=== PATIENT | male | born 1955 | race Caucasian/White ===

== ENCOUNTER 2017-04-01 21:16 | Inpatient (IN) | payer MEDICARE ==
--- OUTSIDE RECORDS SUMMARY | 2017-04-01 21:31 | XMS | Clinical Summary ---
:1955 Author Organization [facility] Address [address] [place] [address] Phone Care Team Providers Name Role Phone , Primary Care Provider Unavailable Allergies Not on File Current Medications Not on file Active Problems Not on file Social History Tobacco Use Types Packs/Day Years Used Date Never Assessed Sex Assigned at Date Recorded Not on file Last Filed Vital Signs Not on file Plan of Treatment Not on file Results Not on filefrom Last 3 Months
--- NOTE | 2017-04-01 23:21 | PDOC.EVN ---
Event Note - Event Note Event Note: [id number] 1. Abdominal pain + r/o adhesisons 2. H/O BPH 3. H/O HTN 4. Leukocytosis plan: see orders
[2017-04-01] MEDS ORDERED: Ondansetron HCl/PF 4 MG/2 ML Vial IVP PRN (23:51)
[2017-04-01] MEDS ORDERED: HYDROcodone/Acetaminophen 5/325 mg Tablet PO PRN (23:51)
[2017-04-01] MEDS ORDERED: Acetaminophen 325 MG TAB PO PRN (23:51)
[2017-04-01] MEDS ORDERED: Cyclobenzaprine 10 MG TAB PO PRN (23:56)
[2017-04-01] MEDS ORDERED: PROVENTIL INHALER 6.7 G (200 INHALATIONS) INH PRN (23:56)
[2017-04-02] MEDS: HYDROcodone/Acetaminophen 10/325 mg Tablet PO PRN ×4 (01:49→22:47)
[2017-04-02] MEDS: Sodium Chloride 0.9% 1,000 ML IV SCH ×3 (01:50→22:50)
--- NOTE | 2017-04-02 07:39 | HP ---
DATE OF ADMISSION: 04/01/2017 CHIEF COMPLAINT: Abdominal pain. HISTORY OF PRESENT ILLNESS: Patient is a 61-year-old male with past medical history of hypertension, neurofibrosarcoma, coronary artery disease, cardiomyopathy, COPD, chronic smoking, now came to the ER, complaining of abdominal pain. Abdominal pain started 3 to 5 days back, left side abdomen, constant pain on 03/15. Denies any nausea, denies any vomiting, pain improves with pain medication. Denies any fever, denies any chills, denies any cough, denies any sputum production. Patient initially went to outside ER and patient was transferred here. Patient denies any chest pain, denies any trouble breathing. PAST MEDICAL HISTORY: Hydrocele surgery, ileostomy, status post recent history of perforated appendix with IR drainage and appendectomy. ALLERGIES: No known drug allergies. MEDICATIONS: Reviewed. FAMILY HISTORY: Denies any heart problems. SOCIAL HISTORY: Positive for smoking, denies alcohol, denies any drugs. REVIEW OF SYSTEMS: Constitutional: Denies any fever, denies any chills. Eyes : Denies any vision problems. Ears: Denies any hearing loss Neck: Denies any neck pain. Cardiovascular system: Denies any chest pain: Respiratory system: Denies any cough, denies any sputum production. Gastrointestinal: Positive for abdominal pain. Genitourinary: Denies dysuria. Integumentary: Denies any rash. Musculoskeletal: Denies any joint deformities. All other systems are reviewed and are negative. PHYSICAL EXAMINATION: CONSTITUTIONAL/VITAL SIGNS: At the time of H\T\P performed, blood pressure is 136/77, pulse ox 97%, heart rate 91. GENERAL APPEARANCE: The patient appears tired. HEENT: Anterior nares patent. Nose normal. Ears normal. Teeth intact. Tongue is moist. NECK: Supple. No JVD. GASTROINTESTINAL: Old healed scar present. Right-sided abdominal ileostomy present. CRANIAL NERVE SYSTEM: Awake, follows commands. Strength intact, sensory intact. PSYCHIATRIC: Mood is appropriate at this time. MUSCULOSKELETAL: No edema. LABORATORY DATA: At the time of H\T\P performed white count 7.5, hemoglobin 9.7 , platelet count is 473. BMP showed sodium 136, potassium 4.4, chloride 103, CO2 of 22, BUN 16, creatinine 1.1. UA positive for specific gravity of 1.020, protein 30. CT abdomen and pelvis positive for no renal hydronephrosis. Postoperative changes seen, ASSESSMENT AND PLAN: The patient is a 61-year-old male: 1. Abdominal pain plus possible postoperative adhesions. Plan to consult General Surgery to evaluate the patient. Plan to keep patient n.p.o. Plan to start the patient on IV fluids and p.r.n. pain medications. We will monitor patient closely. 2. History of hypertension. Monitor blood pressure. Continue blood pressure meds. 3. History of benign prostatic hypertrophy. Continue Flomax. 4. Pain. P.r.n. pain medications. Case was discussed in detail with the patient. RODRIGO
[2017-04-02] MEDS: Carvedilol 6.25 MG TAB PO SCH ×2 (08:48→16:57)
[2017-04-02] MEDS: Famotidine/PF 20 mg/2ml Vial SLOW IVP SCH ×2 (08:48→22:50)
[2017-04-02] MEDS ORDERED: Enoxaparin Sodium 40 MG/0.4 ML SYRINGE SC SCH (09:00)
[2017-04-02] MEDS: Famotidine 20 MG TAB PO SCH ×2 (10:06→22:50)
--- NOTE | 2017-04-02 10:11 | PDOC.PN ---
- Subjective Encounter Start Date: 04/02/17 Encounter Start Time: 12:45 -: old records requested/rev Pt seen and exmained, chart reviewed in its entirety. Pt admitted late last night for ongoing abdominal pain. History of admit early 01/2017 for abd pain, found to have appendicitis and ureteral obstruction form the mass effect of the inflammation. eventually went to surgery and ultimately discharged mid 02/2017. continued with some pain. Now worse for last 5 days. admitted for pain control, surgery eval. CT A/P without conrast revealed post op changes, chronic ileostomy, and probable adhesions with binding of bowel without obvious dilation. Admitted to us, awaiting surgical consultation james Cabezas continues to have pain, po meds seem to work fine. Afebrile no N/V, no D/C, NPO at present, no CP or SOB 10 point ROS performed and neg for all systems except as above - Objective Resuscitation Status: full MAR Reviewed: Yes Vital Signs & Weight: Vital Signs (12 hours) Temp Pulse Resp BP BP Pulse Ox 04/02/17 08:48 126/74 04/02/17 08:00 97.9 F 81 16 04/02/17 07:26 97.9 F 81 16 177/80 H 99 04/01/17 23:56 97.8 F 81 16 126/74 96 04/01/17 23:51 98 Weight Weight 160 lb 14.999 oz Result Diagrams: 04/02/17 11:31 04/02/17 11:27 Radiology Reviewed by me: Yes EKG Reviewed by me: Yes Phys Exam - Physical Examination Constitutional: NAD HEENT: PERRLA, moist MMs, sclera anicteric, oral pharynx no lesions Neck: no nodes, no JVD, supple, full ROM Respiratory: no wheezing, no rales, no rhonchi, clear to auscultation bilateral Cardiovascular: RRR, no significant murmur, no rub Gastrointestinal: positive bowel sounds diffusely tender, increased to LUQ/LLQ, no rebound, not rigid Musculoskeletal: no edema, pulses present Neurological: non-focal, normal sensation, moves all 4 limbs Lymphatic: no nodes Psychiatric: normal affect, A&O x 3 Skin: no rash, normal turgor, cap refill <2 seconds Dx/Plan (1) Abdominal pain Code(s): R10.9 - UNSPECIFIED ABDOMINAL PAIN Status: Acute Qualifiers: Abdominal location: left upper quadrant Qualified Code(s): R10.12 - Left upper quadrant pain Comment: follow up on surgical evaluation: they doubt SBO due ot lack of n/v, passing gas, delayed but present contrast in the colon. No free air. Pt with urinary issues, think it may be related to bladder distention, monitoring UOP and PVR. Flomax and diet restarted by surgery, will monitor. WBC ordered for AM (2) BPH (benign prostatic hyperplasia) Code(s): N40.0 - BENIGN PROSTATIC HYPERPLASIA WITHOUT LOWER URINRY TRACT SYMP Status: Chronic Qualifiers: Lower urinary tract symptom presence: symptoms present Lower urinary tract symptom detail: unspecified Qualified Code(s): N40.1 - Benign prostatic hyperplasia with lower urinary tract symptoms Comment: FLomax restarted, if PVR still elevated (Pt voided 300, bladder scan read 289 left), may need to add finasteride or avodart - Plan cont current plan of care, continue antibiotics, DVT proph w/heparin * .
[2017-04-02] MEDS: Heparin 5,000 UNITS/ML VIAL SC SCH ×3 (10:45→22:49)
[2017-04-02 11:51] LABS: Anion Gap 15 mmol/L (10-20); BUN (Urea Nitrogen) 19 mg/dL (8.4-25.7); Calc. Creatinine Clearance 98 mL/min (70-130); Carbon Dioxide 20 mmol/L (23-31); Chloride 104 mmol/L (98-107); Estimated GFR-MDRD Greater than 90
[2017-04-02 12:04] LABS: Band 8 % (5-11); Hematocrit 32.6 % (42.0-52.0); Mean Platelet Volume 5.9 fL (7.4-10.4); Neutrophil 87 % (42-75); Red Blood Cell (RBC) Count 3.59 mill/uL (4.70-6.10); White Blood Cell (WBC) Count 18.3 thou/uL (4.8-10.8)
--- NOTE | 2017-04-02 12:11 | CON ---
DATE OF CONSULTATION: 04/02/2017 The patient is well known to the trauma service, specifically, Dr. Sandra from his previous multiple abdominal operations from previous visits. Of note, the patient was doing well home healing lower midline wound almost completely healed, start ed to have more left lower quadrant, left flank pain not associated with dysuria, no change in bowel s. No nausea, vomiting, tolerating regular food. He does note incontinence of urine, where he feel s like he has to pee and cannot pee, but than he has some leakage. At times, he will have what he f eels like are normal voids, states that his ostomy output has been fairly stable. The pain is descr ibed as sharp, left lower quadrant radiating to left flank and across the lower abdomen. It has imp roved from admission. PAST MEDICAL HISTORY: Includes negative except for previous pelvic sarcoma and multiple operations. PAST SURGICAL HISTORY: As above. ALLERGIES: No known drug allergies. MEDICINES: See list. SOCIAL HISTORY: He smokes. No alcohol or other drugs. REVIEW OF SYSTEMS: Otherwise, negative. PHYSICAL EXAMINATION: VITAL SIGNS: Blood pressure is 126/74, pulse 81, temperature 97.9, respirations are normal. CHEST: Clear. HEART: Regular rate and rhythm. ABDOMEN: Soft, minimally tender in the left lower quadrant. No guarding or rebound. No right-side d abdominal tenderness. His ostomy is intact in the right lower quadrant with some air and stool in the bag. His low midline wound is almost completely healed, just a small area that is granulating in. LABORATORY AND X-RAY FINDINGS: White blood cell count is 17, creatinine is normal at 1.1. LFTs nor mal except alkaline phosphatase elevated a little bit at 238. His CT scan of his abdomen shows what looks like some scar tissue changes, no definitive obstruction. No abscess. No significant free f luid. He does have a fairly full bladder is on a CT scan and some postop changes down in his pelvis . ASSESSMENT: Abdominal pain, multiple abdominal operations in the last 3 months. No definite etiolo gy the pain at this time. His urine is clear. His white count is elevated, but he is not febrile a nd he is tolerating regular food, and having normal GI function. PLAN: We will continue observation. I wonder if he is having some overflow incontinence and chroni екатерина full bladder could be causing some cramping and pain, so we will do some bladder scans after h e avoids today and see if he has a lot of retained urine.
[2017-04-02] MEDS: DULoxetine 60 MG CAP PO SCH (12:40)
[2017-04-02] MEDS: Tamsulosin HCl 0.4 MG CAP PO SCH (12:40)
[2017-04-02] MEDS: Lisinopril 2.5 MG TAB PO SCH (12:40)
[2017-04-02] MEDS: Spironolactone 25 MG TAB PO SCH (12:40)
[2017-04-03] MEDS: HYDROcodone/Acetaminophen 10/325 mg Tablet PO PRN ×4 (03:08→19:34)
[2017-04-03 04:34] VITALS: BMI 25.7
--- NOTE | 2017-04-03 08:09 | PRG ---
DATE OF SERVICE: 04/03/2017 SUBJECTIVE: Mr. Cardoso is still complaining of some lower abdominal and left lower quadrant pain. He turned down the in-and-out cath yesterday for postvoid residual over 300. He has been started n ow on Flomax. PHYSICAL EXAMINATION: VITAL SIGNS: He is afebrile. Vital signs are stable. Urine output is adequate. ABDOMEN: Soft, batch still operator in the lower abdomen and the left lower quadrant. ASSESSMENT: Complex postop surgical history, with a CT scan on admission for pain showing persisten t scar tissue change, but no obstruction or drainable abscess. He is tolerating regular diet. He i s having high postvoid residuals. PLAN: Again discussed the need for bladder training and catheters p.r.n. high postvoid residual. Amarilis jamison may need a Urology consult to address this. We will discuss with the medical doctors. For now, amarilis jamison has been started on Flomax.
[2017-04-03] MEDS: Carvedilol 6.25 MG TAB PO SCH ×2 (08:32→17:30)
[2017-04-03] MEDS: DULoxetine 60 MG CAP PO SCH (08:33)
[2017-04-03] MEDS: Famotidine 20 MG TAB PO SCH ×2 (08:33→22:03)
[2017-04-03] MEDS: Spironolactone 25 MG TAB PO SCH (08:33)
[2017-04-03] MEDS: Tamsulosin HCl 0.4 MG CAP PO SCH (08:33)
[2017-04-03] MEDS: Heparin 5,000 UNITS/ML VIAL SC SCH ×3 (08:34→21:52)
[2017-04-03] MEDS: Famotidine/PF 20 mg/2ml Vial SLOW IVP SCH ×2 (08:35→21:52)
[2017-04-03] MEDS: Dutasteride 0.5 MG CAP PO SCH (09:05)
[2017-04-03] MEDS: Lisinopril 2.5 MG TAB PO SCH (09:08)
[2017-04-03 09:40] LABS: #Eosinphils 0.1 thou/uL (0.0-0.7); #Lymphocytes 1.3 thou/uL (1.20-3.40); #Monocytes 0.7 thou/uL (0.11-0.59); #Neutrophils 12.9 thou/uL (1.40-6.50); %Basophils 0.2 % (0.0-1.0); %Eosinophils 0.4 % (0.0-10.0); %Lymphocytes 8.9 % (21.0-51.0); %Monocytes 4.4 % (0.0-10.0); Hematocrit 31.4 % (42.0-52.0); Mean Platelet Volume 6.4 fL (7.4-10.4); Red Blood Cell (RBC) Count 3.48 mill/uL (4.70-6.10); White Blood Cell (WBC) Count 14.9 thou/uL (4.8-10.8)
[2017-04-03 09:56] LABS: Anion Gap 15 mmol/L (10-20); BUN (Urea Nitrogen) 18 mg/dL (8.4-25.7); Calc. Creatinine Clearance 95 mL/min (70-130); Calcium 8.8 mg/dL (7.8-10.44); Carbon Dioxide 20 mmol/L (23-31); Chloride 106 mmol/L (98-107); Estimated GFR-MDRD Greater than 90
[2017-04-03] MEDS: Sodium Chloride 0.9% 1,000 ML IV SCH ×3 (10:10→21:53)
--- NOTE | 2017-04-03 10:55 | PDOC.PN ---
- Subjective Encounter Start Date: 04/03/17 Encounter Start Time: 10:50 Pt seen on rounds. Atill having abd pain, up to 03/15, slightly improved with [place] . Pt seen earlier by surgery, Dr Sandra to return tomorrow. Review of chart shows pt met sepsis criteria on admit with elevated WBC and left shift, suspected intra-abdominal infection and tachycardia. PT started on IV antibiotics and WBc improved but still elevated, bands have resolved. Flomax started back yesterday, still with 300cc post-void residual. Added in Avodart today. Surgery mentioned Urology consult, but if pt is voiding, doubt they will not add any more. Will ask them to see him in the morning, certianly not urgent No F/C, no N/V/D/C, no CP or SOb, no hematuria or dysuria. pink mucoid rectal discharge earlier, no tenesmus - Objective Resuscitation Status: Full MAR Reviewed: Yes Vital Signs & Weight: Vital Signs (12 hours) Temp Pulse Resp BP BP Pulse Ox 04/03/17 09:08 88 164/77 H 04/03/17 08:32 164/77 H 04/03/17 08:00 98.4 F 88 16 04/03/17 07:35 98.4 F 88 16 164/77 H 98 Weight Weight 160 lb 0.889 oz I&O: 04/02/17 04/03/17 04/04/17 06:59 06:59 06:59 Intake Total 1800 400 Output Total 2325 Balance -525 400 Result Diagrams: 04/03/17 09:31 04/03/17 09:31 Radiology Reviewed by me: Yes EKG Reviewed by me: Yes Phys Exam - Physical Examination Constitutional: NAD HEENT: PERRLA, moist MMs, sclera anicteric, oral pharynx no lesions Neck: no nodes, no JVD, supple, full ROM Respiratory: no wheezing, no rales, no rhonchi, clear to auscultation bilateral Cardiovascular: RRR, no significant murmur, no rub Gastrointestinal: soft, no distention, positive bowel sounds ileostomy C/D/I, mild TTP, no rebound, no guarding Musculoskeletal: no edema, pulses present Neurological: non-focal, normal sensation, moves all 4 limbs Lymphatic: no nodes Psychiatric: normal affect, A&O x 3 Skin: no rash, normal turgor, cap refill <2 seconds Dx/Plan (1) Abdominal pain Code(s): R10.9 - UNSPECIFIED ABDOMINAL PAIN Status: Acute Qualifiers: Abdominal location: left upper quadrant Qualified Code(s): R10.12 - Left upper quadrant pain Comment: follow up on surgical evaluation: they doubt SBO due to lack of n/v, passing gas, delayed but present contrast in the colon. No free air. Pt with urinary issues, think it may be related to bladder distention, monitoring UOP and PVR. Flomax and diet restarted by surgery, will monitor. WBC ordered for AM. presented with suspected infection, and met sepsis criteria. surgery doing serial exams, on IV antibioitcs, WBC better, but still elevated. (2) BPH (benign prostatic hyperplasia) Code(s): N40.0 - BENIGN PROSTATIC HYPERPLASIA WITHOUT LOWER URINRY TRACT SYMP Status: Chronic Qualifiers: Lower urinary tract symptom presence: symptoms present Lower urinary tract symptom detail: incomplete bladder emptying Qualified Code(s): N40.1 - Benign prostatic hyperplasia with lower urinary tract symptoms; R39.14 - Feeling of incomplete bladder emptying; R39.14 - Feeling of incomplete bladder emptying Comment: FLomax restarted, PVR still elevated (Pt voided 300, bladder scan read 289 left), Avodart added. follow output. Urology consulted for tomorrow, not urgent (3) Sepsis Code(s): A41.9 - SEPSIS, UNSPECIFIED ORGANISM Status: Acute Qualifiers: Sepsis type: sepsis due to unspecified organism Qualified Code(s): A41.9 - Sepsis, unspecified organism Comment: AM WBC, resolving. WBC better, but still elevated, HR now back under 90. Will CCM, will discuss with surgery repeat imaging with contrast for dung pictures (4) Intra-abdominal infection Code(s): B99.9 - UNSPECIFIED INFECTIOUS DISEASE Status: Acute Comment: suspected on admit, surgey not convinced and no imaging evidence. WBC better on abx, repeat in AM, Dr Sandra to assume care from surgery standpoint tomorrow. (5) Urinary retention due to benign prostatic hyperplasia Code(s): N40.1 - BENIGN PROSTATIC HYPERPLASIA WITH LOWER URINARY TRACT SYMP; R33.8 - OTHER RETENTION OF URINE Status: Acute (6) Urinary retention with incomplete bladder emptying Code(s): R33.9 - RETENTION OF URINE, UNSPECIFIED Status: Acute Comment: pt refused I/O cath. PVR around 300, recheck after adding in Avodart - Plan cont current plan of care, continue antibiotics * .
[2017-04-03] MEDS ORDERED: HYDROcodone/Acetaminophen 5/325 mg Tablet PO PRN (11:11)
[2017-04-04] MEDS: HYDROcodone/Acetaminophen 10/325 mg Tablet PO PRN ×3 (01:54→14:54)
[2017-04-04 04:24] LABS: Anion Gap 14 mmol/L (10-20); BUN (Urea Nitrogen) 15 mg/dL (8.4-25.7); Calc. Creatinine Clearance 100 mL/min (70-130); Calcium 8.6 mg/dL (7.8-10.44); Carbon Dioxide 19 mmol/L (23-31); Chloride 107 mmol/L (98-107); Estimated GFR-MDRD Greater than 90
[2017-04-04] MEDS: Sodium Chloride 0.9% 1,000 ML IV SCH (07:18)
[2017-04-04] MEDS: Famotidine 20 MG TAB PO SCH (08:20)
[2017-04-04] MEDS: Carvedilol 6.25 MG TAB PO SCH ×2 (08:20→16:56)
[2017-04-04] MEDS: DULoxetine 60 MG CAP PO SCH (08:20)
[2017-04-04] MEDS: Heparin 5,000 UNITS/ML VIAL SC SCH ×2 (08:21→14:55)
[2017-04-04] MEDS: Tamsulosin HCl 0.4 MG CAP PO SCH (08:21)
[2017-04-04] MEDS: Spironolactone 25 MG TAB PO SCH (08:21)
[2017-04-04] MEDS: Dutasteride 0.5 MG CAP PO SCH (08:21)
[2017-04-04] MEDS: Famotidine/PF 20 mg/2ml Vial SLOW IVP SCH (08:54)
[2017-04-04] MEDS ORDERED: Lisinopril 5 MG TAB PO SCH (09:00)
[2017-04-04 09:19] LABS: #Eosinphils 0.1 thou/uL (0.0-0.7); #Lymphocytes 1.3 thou/uL (1.20-3.40); #Monocytes 0.4 thou/uL (0.11-0.59); #Neutrophils 7.6 thou/uL (1.40-6.50); %Basophils 0.3 % (0.0-1.0); %Eosinophils 0.7 % (0.0-10.0); %Lymphocytes 13.7 % (21.0-51.0); %Monocytes 4.6 % (0.0-10.0); Hematocrit 37.8 % (42.0-52.0); Mean Platelet Volume 6.5 fL (7.4-10.4); Red Blood Cell (RBC) Count 4.22 mill/uL (4.70-6.10); White Blood Cell (WBC) Count 9.4 thou/uL (4.8-10.8)
[2017-04-04 13:41] LABS: Bilirubin Negative (Negative); Blood, Urine Negative (Negative); Glucose, Urine (Dipstick) Negative (Negative); Ketone, Urine Negative (Negative); Nitrite Negative (Negative); Protein, Urine (Dipstick) Negative (Neg-Trace); Urobilinogen 0.2 mg/dL (0.2-1.0)
[2017-04-04 16:11] VITALS: BP 157/76; TEMP 96.5
--- NOTE | 2017-04-04 16:18 | DIS ---
DATE OF ADMISSION: 04/03/2017 DATE OF DISCHARGE: 04/04/2017 DISCHARGE DIAGNOSES: 1. Abdominal pain: Etiology unclear. 2. Suspected intra-abdominal infection. 3. Sepsis. 4. Benign prostatic hypertrophy with urinary retention and incomplete bladder voiding. 5. Recent intra-abdominal infection status post surgery. 6. History of sarcoma. CONSULTATIONS: General Surgery, seen by Dr. Tello Ram on 04/02/2017 and on 04/03/2017, followed by Dr. Sandra today. PROCEDURES: None. HOSPITAL COURSE: Mr. Cardoso is a 61-year-old gentleman recently admitted for intra-abdominal sepsi s back in January. He was here for a little over a month and had multiple surgeries including ileost raghav creation. He presented to the emergency department on the day of admission complaining of abdominal pain that started 3-5 days prior to admission, left side of the abdomen, starting from the flank wrapping arou nd to the front and rated 10/10. Workup in the emergency department was largely unremarkable. He h ad a large massive bowel that seemed to be matted together. Otherwise, his labs were unremarkable e xcept for an elevated white count. We were called for admission for further workup and evaluation. HOSPITAL COURSE: The patient was seen and examined. The patient was admitted by Dr. Carbajal. He was started on Cipro, General Surgery was consulted. Overnight, he did well and he remained relativ jesus manuel stable and pain under a little control. On 04/02/2017, he was seen by Surgery, recommended no further workup. I felt that was secondary to the possible urinary obstruction. The CT did not show any hydronephrosis. The patient was continue d on his Flomax. A postvoid residual was checked that were noted to be between 300-400. Patient's pain was fairly stable. He had no fever and white blood cell count had improved slightly. On 04/03/2017, white blood cell count was down to 14.9, he was afebrile, urinalysis and urine cultur es remain negative. Avodart was added to his regimen and within a few hours, postvoid residual drop ped from 300-400 down to around 200. Today, the day of discharge, the patient had some control of p ain with it down to a 3-4, occasionally 5/10. He was seen by Dr. Sandra who felt there was no need f or any kind of surgical evaluation or repeat CT scan. I discussed with him the improvement in white blood cell count and resolution of sepsis on the Cipro and informed we will be sending him home to complete a 2 week course with outpatient followup. The patient was good with the plan, Urology was consulted due to urinary retention, is continued on his Flomax and Avodart for outpatient followup. PHYSICAL EXAMINATION: The patient was seen and examined on the day of discharge. Discharge plan and disposition were discussed with the patient. The patient is at the bedside. Greater than 40 minutes were spent coordinating care and discussed with the patient about discharge. DISCHARGE MEDICATIONS: 1. Avodart 0.5 mg p.o. daily. 2. Flomax 0.4 mg p.o. at bedtime. 3. Coreg 6.25 mg p.o. b.i.d. 4. Cipro 500 mg p.o. b.i.d. for 10 more days. 5. Flexeril 10 mg p.o. t.i.d. p.r.n. muscle spasm. 6. Cymbalta 60 mg p.o. daily. 7. Pepcid 20 mg p.o. b.i.d. 8. Hydrocodone 1-2 q.4-6 h. as needed for pain. New prescription was not given. 9. Lisinopril 5 mg daily. 10. Spironolactone 25 mg p.o. q.a.m. 11. Ventolin inhaler 2 puffs every 4 hours as needed for shortness of breath or wheezing. Pending labs, none. FOLLOWUP APPOINTMENTS: 1. Primary care physician within a week. 2. Dr. Sandra per his clinic. 3. Dr. Morris with Urology if he needs to see him as an outpatient per his clinic. DISCHARGE CONDITION: Stable. DISPOSITION: Being discharged home via private vehicle.
--- NOTE | 2017-04-05 01:37 | CON ---
DATE OF CONSULTATION: 04/04/2017 REASON FOR CONSULTATION: Urinary problems. HISTORY OF PRESENT ILLNESS: Mr. 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 He currently has an ileostomy. He was admitted to the hospital on 04/01/2017 with abdominal pain. As part of his history, he gave a history of poor urin salvatore control. He has some urgency to go and will sometimes not make it to the bathroom. He also has nocturnal incontinence. A postvoid residual was determined to be 300. He denies any dysuria. He has no prior urologic history other than a hydrocele repair and he is currently on Flomax. 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 ALLERGIES: No known drug allergies. MEDICATIONS: Reviewed. FAMILY HISTORY: Heart problems. SOCIAL HISTORY: He does smoke, but denies alcohol and drug use. REVIEW OF SYSTEMS: Respiratory: No shortness of breath. Cardiovascular: No chest pain or palpitations. Gastrointest inal: Please see history of present illness. Genitourinary: Please see history of present illness . PHYSICAL EXAMINATION: GENERAL: He is awake and alert. He is in no distress at this time. HEENT: Normocephalic, atraumatic. NECK: Supple, without masses. CHEST: Clear to auscultation. CARDIOVASCULAR: No murmurs. ABDOMEN: He has a well-functioning ileostomy. No peritoneal signs. EXTREMITIES: No edema. DIGITAL RECTAL: Not performed as per patient request. IMPRESSION: Mr. Cardoso has some urinary urgency and nighttime incontinence in conjunction with an elevated postvoid residual of 300 mL. He may be in overflow incontinence at nighttime. He will carl ble his Flomax. We will have him present to our office for cystoscopy and he may require additional therapy by intermittent catheterization, transurethral resection of the prostate or minimally invas hien procedures for occlusive prostate disease if indeed this diagnosis is confirmed. RECOMMENDATIONS: Okay for discharge home and follow up in our office for cystoscopy.
--- NOTE | 2017-04-08 18:05 | PQF ---
ALONDRA LOVETTDarryl Dee [id number] CLINICAL DOCUMENTATION CLARIFICATION FORM: POST DISCHARGE Please clarify if documented "intra-abdominal infection" can be further specified. DC DIAGNOSES; include; Suspected intra-abdominal infection, Sepsis, Recent intra -abdominal infection status post surgery. Please exercise your independent, professional judgment in responding to the clarification form. Thank you. Please check appropriate box(s): Documentation was noted in the Medical Record, please clarify if site can be further specified. [ ] (site/location) [ ] Other diagnosis [ x] Unable to determine In addition, please specify: Present on Admission (POA): [ ] Yes [ ] No [ x ] Unable to determine (This form is maintained as a part of the permanent medical record) 2014 [email or web address], [email or web address]. All Rights Reserved [email or web address] [phone] [email or web address]
== END 2017-04-04 18:27 | disposition home or self-care (01) | DRG 872 ==
LOC: ERS 21:16 → ONC 23:00 → OBSVTOIN 04-03 10:47
PROVIDERS: ADMIT Internal Medicine; ATTEND Internal Medicine
DX: A41.9 Sepsis, unspecified organism (principal); I42.9 Cardiomyopathy, unspecified; R10.12 Left upper quadrant pain; R10.32 Left lower quadrant pain; K66.0 Peritoneal adhesions (postprocedural) (postinfection); Z93.2 Ileostomy status; N40.1 Benign prostatic hyperplasia with lower urinary tract symptoms; R33.8 Other retention of urine; R39.14 Feeling of incomplete bladder emptying; R39.15 Urgency of urination; N39.490 Overflow incontinence; Z85.848 Personal history of malignant neoplasm of other parts of nervous tissue; J44.9 Chronic obstructive pulmonary disease, unspecified; F17.210 Nicotine dependence, cigarettes, uncomplicated; I10 Essential (primary) hypertension; I25.10 Atherosclerotic heart disease of native coronary artery without angina pectoris
CPT/HCPCS: 36415; 80048; 81003; 85025; 87086; 96374; G0103; J0744; J1644; J2270; S0028

== ENCOUNTER 2017-05-26 05:46 | Day surgery (SDC) | payer MEDICARE ==
[2017-05-25 12:12] VITALS: BMI 22.2
[2017-05-26] MEDS ORDERED: Nitroglycerin 100MG/250ML BOT 250 ML ONE (08:26)
[2017-05-26] MEDS ORDERED: Heparin 10,000 UNITS/1 ML VIAL ONE (08:27)
[2017-05-26] MEDS ORDERED: Verapamil 5 MG/2 ML VIAL ONE (08:39)
[2017-05-26] MEDS ORDERED: Fentanyl 100 MCG/2 ML VIAL ONE (08:40)
[2017-05-26] MEDS ORDERED: Midazolam HCl 2 mg/2 ml Vial ONE (08:40)
[2017-05-26] MEDS ORDERED: Iopamidol 370 76% 100 ML VIAL ONE (11:16)
--- NOTE | 2017-05-26 14:32 | EKG ---
Test Reason : PREOP Blood Pressure : / mmHG Vent. Rate : 078 BPM Atrial Rate : 078 BPM P-R Int : 136 ms QRS Dur : 082 ms QT Int : 376 ms P-R-T Axes : 084 034 075 degrees QTc Int : 428 ms Normal sinus rhythm Normal ECG Confirmed by ALON RAO ([id number]) on 05/26/2017 2:32:09 PM Referred By: MEL Confirmed By:ALON RAO
== END 2017-05-26 12:16 | disposition home or self-care (01) ==
LOC: CCL 05:46
PROVIDERS: ATTEND Internal Medicine Cardiovascular Disease
DX: I42.0 Dilated cardiomyopathy (principal); F41.9 Anxiety disorder, unspecified; I10 Essential (primary) hypertension; K21.9 Gastro-esophageal reflux disease without esophagitis; I25.10 Atherosclerotic heart disease of native coronary artery without angina pectoris; J45.909 Unspecified asthma, uncomplicated; N40.0 Benign prostatic hyperplasia without lower urinary tract symptoms; Z85.038 Personal history of other malignant neoplasm of large intestine; Z90.49 Acquired absence of other specified parts of digestive tract; Z79.899 Other long term (current) drug therapy; Z79.2 Long term (current) use of antibiotics; Z87.891 Personal history of nicotine dependence; Z98.890 Other specified postprocedural states
CPT/HCPCS: 93005; 93458; C1769; 93010; 99152; J1644; J2250; J3010

== ENCOUNTER 2017-07-26 16:40 | Observation (INO) | payer MEDICARE ==
[2017-07-26 17:30] LABS: #Basophils 0.1 thou/uL (0.0-0.2); #Eosinphils 0.1 thou/uL (0.0-0.7); #Lymphocytes 1.8 thou/uL (1.20-3.40); #Monocytes 0.5 thou/uL (0.11-0.59); %Basophils 0.7 % (0.0-1.0); %Eosinophils 1.9 % (0.0-10.0); %Lymphocytes 23.8 % (21.0-51.0); %Monocytes 6.6 % (0.0-10.0); Hemoglobin 14.3 g/dL (14.0-18.0); Mean Corpuscular HGB CONC 33.2 g/dL (32.0-36.0); Mean Corpuscular Hemoglobin 29.5 pg (27.0-31.0); Mean Corpuscular Volume 89.1 fl (80.0-94.0); Mean Platelet Volume 5.8 fL (7.4-10.4); Platelet Count 359 thou/uL (130-400); Red Blood Cell (RBC) Count 4.84 mill/uL (4.70-6.10); White Blood Cell (WBC) Count 7.4 thou/uL (4.8-10.8)
[2017-07-26] MEDS ORDERED: HYDROcodone/Acetaminophen 5/325 mg Tablet ONE (18:32)
[2017-07-26] MEDS ORDERED: Cyclobenzaprine 10 MG TAB PO PRN (19:00)
[2017-07-26] MEDS ORDERED: Methocarbamol 1 GM in Sodium Chloride 0.9% 100 ML IVPB PRN (19:02)
[2017-07-26] MEDS ORDERED: Sodium Chloride 0.9% 1,000 ML IV SCH (19:08)
[2017-07-26 19:28] LABS: ALT (SGPT) 46 U/L (8-55); AST (SGOT) 33 U/L (5-34); Albumin 4.3 g/dL (3.4-4.8); Alkaline Phosphatase 115 U/L (40-150); Anion Gap 20 mmol/L (10-20); BUN (Urea Nitrogen) 18 mg/dL (8.4-25.7); Bilirubin, Total 1.1 mg/dL (0.2-1.2); Calc. Creatinine Clearance 0 mL/min (70-130); Calcium 9.8 mg/dL (7.8-10.44); Carbon Dioxide 21 mmol/L (23-31); Chloride 93 mmol/L (98-107); Estimated GFR-MDRD 64; Globulin 3.1 g/dL (2.4-3.5); Protein, Total 7.4 g/dL (5.8-8.1); Sodium 130 mmol/L (136-145)
[2017-07-26 19:33] LABS: Glucose 52 mg/dL (80-115)
[2017-07-26] MEDS: Dextrose 5 %-0.45 % NaCl 1,000 ML IV SCH (19:49)
--- NOTE | 2017-07-26 20:19 | HP ---
DATE OF ADMISSION: 07/26/2017 CHIEF COMPLAINT: Nausea and vomiting. HISTORY OF PRESENT ILLNESS: This is a 61-year-old white male with a known history of multiple abdomi nal surgeries with a history of peptic ulcer disease, bleeding ulcers last year, and the patient also had a bowel obstruction and had exploratory laparotomy with an appendicular rupture. The patient al so has a history of colon cancer with a colectomy and with a colostomy bag at this time. He has regu lar wound care for his chronic nonhealing surgical wounds on his abdomen. The patient was in his [facility] until 2 days ago he started noticing worsening nausea and vomiting and is unable t o keep anything down. He also noticed a black stool in his colostomy bag and he had to empty 3 times . The patient also has a chronic low back pain and he takes pain medications at home, do not know wh at kind of pain medications he has. He also has intrathecal steroids to his lower spine. The patient initially went to [facility] and then he was transferred here. The patient's initia l hemoglobin was 13.4, which dropped to 11.9 in the matter of 4 hours. PAST MEDICAL HISTORY: 1. Peptic ulcer disease. 2. History of colon cancer. 3. History of hypertension. 4. History of neurofibrosarcoma. 5. History of coronary artery disease. 6. History of cardiomyopathy. 7. History of chronic obstructive pulmonary disease. PAST SURGICAL HISTORY: 1. Hydrocele surgery. 2. Ileostomy. 3. Status post perforated appendix surgery with IR drainage and appendectomy. FAMILY HISTORY: Denies having any coronary artery disease in the family and no premature deaths. SOCIAL HISTORY: The patient is a nonsmoker and denies alcohol. No history of illicit drug use. ALLERGIES: No known drug allergies. HOME MEDICATIONS: 1. Coreg 6.125 mg p.o. b.i.d. 2. Cyclobenzaprine 10 mg p.o. t.i.d. 3. Diazepam 5 mg p.o. daily. 4. Cymbalta 60 mg p.o. daily. 5. Avodart 0.5 mg p.o. daily. 6. Famotidine. 7. Lisinopril 5 mg p.o. daily. 8. Pantoprazole. 9. Bactrim. 10. Tamsulosin 0.4 mg p.o. daily. 11. Ventolin inhaler p.r.n. REVIEW OF SYSTEMS: All 12 systems are reviewed with the patient thoroughly and found to be negative at this time except those described in the HPI. Constitutional: Weight loss or gain, sense of well-being, ability to conduct usual activities, exerc ise tolerance. Skin/Breast: Rash, itching, changes in hair growth or loss, nail changes, breast lumps, tenderness, swelling, nipple discharge. Eyes: Vision, double vision, tearing, blind spots, pain. ENT/Mouth: Headaches (location, time of onset, duration, precipitating factors), vertigo, lightheade dness, injury. Vision, double vision, tearing, blind spots, pain, nose bleeding, colds, obstruction, discharge, dental difficulties, gingival bleeding, dentures, neck stiffness, pain, tenderness, madhav s in thyroid or other areas. Cardiovascular: Precordial pain, substernal distress, palpitations, syncope, dyspnea on exertion, or thopnea, nocturnal paroxysmal dyspnea, edema, cyanosis, hypertension, heart murmurs, varicosities, ph lebitis, claudication. Respiratory: Pain, shortness of breath, wheezing, stridor, cough, hemoptysis, fever or night sweats. Gastrointestinal: Poor appetite, dysphagia, indigestion, abdominal pain, heartburn, eructation, naus ea, vomiting, hematemesis, jaundice, constipation, or diarrhea, abnormal stools (lenin-colored, tarry, bloody, greasy, foul smelling), flatulence, hemorrhoids, recent changes in bowel habits. Genitourinary: Urgency, frequency, dysuria, nocturia, hematuria, polyuria, oliguria, unusual (or apolonia nge in) color of urine, stones, hesitancy, change in size of stream, dribbling, acute retention or in continence, libido, potency. Musculoskeletal: Pain, swelling, redness or heat of muscles or joints, limitation, of motion, muscul ar weakness, atrophy, cramps. Neurologic/Psychiatric: Convulsions, paralyses, tremor, incoordination, paresthesias, difficulties w ith memory of speech, sensory or motor disturbances, or muscular coordination (ataxia, tremor), emoti onal problems, anxiety, depression, previous psychiatric care, unusual perceptions, hallucinations. Allergy/Immunologic: Skin rash, anemia, bleeding tendency, polydipsia, polyuria, intolerance to heat or cold. PHYSICAL EXAMINATION: VITAL SIGNS: Blood pressures are 130/88, heart rate is 88, respiratory rate is 18, and saturation 98 %. GENERAL: The patient is moderately built, moderately nourished, does not appear to be in acute distr ess. CARDIOVASCULAR: S1, S2 normal. No murmurs, rubs or gallops. LUNGS: Bilateral air entry was equal. No wheezing, no crackles. ABDOMEN: Soft, nontender, no guarding, no rebound tenderness. Bowel sounds normal. MUSCULOSKELETAL: No calf tenderness. No pedal edema. No joint tenderness, no joint swelling. SKIN: No cyanosis, no erythema, no rash, no pallor. NEUROLOGIC: Cranial examination II through XII intact. No focal deficits were noted. PSYCHIATRIC: No signs of suicidal ideation, no signs of kayla. LABORATORY DATA: WBC is 7.4, hemoglobin is 14.3, hematocrit is 43.1, and platelets of 351. BMP is pending at this time. IMAGING: CT of the abdomen and pelvis was done today, which showed no significant large or small bow el abnormality and a nonspecific mass along the right pelvic sidewall was slightly decreased in size compared to the prior exam, otherwise no acute inflammatory disease noted in the CT scan. ASSESSMENT: 1. Acute upper gastrointestinal bleed. 2. Acute drop in hemoglobin, likely from blood loss. 3. Severe chronic low back pain. 4. History of chronic obstructive pulmonary disease. 5. Hypertension. 6. History of hyperlipidemia. 7. History of coronary artery disease. PLAN: 1. Plan is to closely monitor this patient. At this time, we will keep the patient n.p.o. for possi ble EGD in the morning. Dr. Kate has been consulted and follows with his recommendations. We w ill start the patient on insulin and Protonix drip at this time as the patient mentioned a clear lyle k stool in his colostomy bag. The patient's hemoglobin has been dropping. We will repeat the hemogl obin and do every 8 hours hemoglobin. 2. The patient has a severe chronic low back pain. We will start the patient on morphine q.6 hours p.r.n. along with Robaxin as needed for back spasms. 3. The patient has a history of coronary artery disease. At this time, we will closely monitor and avoid any blood thinners at this time because of the acute bleeding. 4. Hypertension. We will restart his home medications. The patient is on Coreg before midnight. 5. History of COPD. No evidence of any exacerbation was noted. We will closely monitor the patient . 12. DVT prophylaxis, sequential compression devices. I spent 70 minutes with this patient.
[2017-07-26] MEDS: Pantoprazole 80 MG in Sodium Chloride 0.9% 100 ML IVPB SCH (22:15)
[2017-07-26 22:23] VITALS: BMI 21.6
[2017-07-26 22:32] LABS: Hemoglobin 12.6 g/dL (14.0-18.0)
[2017-07-27] MEDS: Morphine 5 MG/ML SYRINGE SLOW IVP PRN ×4 (03:33→21:27)
[2017-07-27] MEDS: Dextrose 5 %-0.45 % NaCl 1,000 ML IV SCH (06:05)
[2017-07-27 06:11] LABS: #Eosinphils 0.2 thou/uL (0.0-0.7); #Lymphocytes 1.1 thou/uL (1.20-3.40); #Monocytes 0.4 thou/uL (0.11-0.59); #Neutrophils 3.4 thou/uL (1.40-6.50); %Basophils 0.3 % (0.0-1.0); %Eosinophils 3.1 % (0.0-10.0); %Lymphocytes 21.2 % (21.0-51.0); %Monocytes 8.1 % (0.0-10.0); %Neutrophils 67.3 % (42.0-75.0); Hemoglobin 12.1 g/dL (14.0-18.0); Mean Corpuscular HGB CONC 33.1 g/dL (32.0-36.0); Mean Corpuscular Hemoglobin 29.7 pg (27.0-31.0); Mean Corpuscular Volume 89.5 fl (80.0-94.0); Mean Platelet Volume 5.8 fL (7.4-10.4); Platelet Count 322 thou/uL (130-400); RBC Distribution Width 12.1 % (11.5-14.5); Red Blood Cell (RBC) Count 4.09 mill/uL (4.70-6.10); White Blood Cell (WBC) Count 5.1 thou/uL (4.8-10.8)
[2017-07-27 06:25] LABS: Anion Gap 13 mmol/L (10-20); BUN (Urea Nitrogen) 17 mg/dL (8.4-25.7); Calc. Creatinine Clearance 67 mL/min (70-130); Calcium 8.8 mg/dL (7.8-10.44); Carbon Dioxide 23 mmol/L (23-31); Chloride 95 mmol/L (98-107); Estimated GFR-MDRD 73; Glucose 96 mg/dL (80-115); Potassium 3.7 mmol/L (3.5-5.1); Sodium 127 mmol/L (136-145)
--- NOTE | 2017-07-27 06:33 | CON ---
DATE OF CONSULTATION: 07/26/2017 REFERRING PHYSICIAN: Dr. Chaparro Vega, [facility]. REASON FOR CONSULTATION: History of black tarry stool, nausea, and vomiting. HISTORY OF PRESENT ILLNESS: Mr. Nathanael Cardoso is a very pleasant, 61-year-old, male, who h as had bleeding duodenal ulcer in the past. The patient had a black tarry stool, hypotension, and an emia I believe a year ago. He was seen by Dr. Loyd Hdez at that time. He had an EGD and was found to have multiple duodenal ulcers. The patient had a repeat EGD done at 3 months after the initial EG D. All the ulcers have healed. The patient hospitalized last year with abdominal pain over the righ t lower quadrant, indicative of appendicitis. He underwent surgery by Dr. Sandra with total colectomy and later conversion to ileostomy. It was a very complicated postoperative course. He has to have repeat surgery and some drainage of fluid collection in belly. He stayed in the hospital for several weeks. He was having some chest pain at that time and had cardiology workup done by Dr. Forrest. Th e patient was admitted for cardiac catheterization 4 months ago and was told to be normal. There is no coronary artery disease. The patient has been eating well and functioning very slowly over [facility] several months. The patient developed abdominal discomfort, nausea, and vomiting, indigestion thr ee days ago. He was unable to keep anything down. When he tried to eat or take some pills, he kept vomiting mostly bilious material. He began noticing black tarry stool today and he has emptied the b ag 3 times. He came to ER because of the black tarry stools. Initially, he went to see [facility] a nd he had a CBC done. The blood count initially was 13.4, dropping down to 11.9. However, the CBC d one today shows perfectly normal hemoglobin of 14.3. Chem-7 is normal and BUN is normal at 18. The patient admits to alcohol because of above reasons. Patient denies taking Pepto-Bismol or any other medication to cause black tarry stool. ALLERGIES: None. SOCIAL HISTORY: Patient does not smoke or drink alcohol. MEDICAL ILLNESSES: 1. Multiple duodenal ulcers in 2017 and has healed. He had 2 EGDs in 2017. 2. Hypertension. 3. History of cardiomyopathy and coronary artery disease, but recent cardiac catheterization was neg ative as per the patient. 4. Chronic obstructive pulmonary disease. 5. History of pelvis, status post colostomy, status post radiation. The patient had colonosco py for long time, and it was converted to ileostomy last year because of the appendicitis and small-b owel perforation. MEDICATIONS: Medication list reviewed. REVIEW OF SYSTEMS: System review is remarkable for basically dyspepsia, nausea, vomiting, and vomite d mostly bilious material. He also had some black tarry stools. PHYSICAL EXAMINATION: GENERAL: He is awake, alert, oriented to time, place, and person. VITAL SIGNS: He is afebrile. Pulse is 88, blood pressure is 130/88. HEENT: Conjunctivae clear. NECK: Supple. No adenitis or thyromegaly noted. CARDIOVASCULAR SYSTEM: First and second heart sounds normal. LUNGS: Clear to auscultation. ABDOMEN: Soft to palpate. He has ileostomy in right lower quadrant. He has a midline operative sca r. Abdomen is nondistended. Abdomen is nontender. Bowel sounds are active. EXTREMITIES: Reveal no edema. LABORATORY DATA: CBC and Chem-7 is normal. The blood count was 14.3, hematocrit 43.1, platelets 351 ,000. His Chem-7 is normal, is 18. CLINICAL IMPRESSION: A 61-year-old male with history of black tarry stool, dyspepsia, nausea, and vo miting. Although, he has history of black tarry stool, he has had no anemia. The blood count is act ually basically normal. He did have bleeding peptic ulcer a year ago. PLAN: 1. Clear liquid diet. 2. IV PPI. 3. Follow up H&H. 4. EGD tomorrow morning and I will make further recommendations.
[2017-07-27] MEDS: Pantoprazole 80 MG in Sodium Chloride 0.9% 100 ML IVPB SCH ×2 (07:07→22:22)
--- NOTE | 2017-07-27 09:38 | CT ---
ABDOMEN CT WITH CONTRAST PELVIC CT WITH CONTRAST: COMPARISON: 04/01/17, 07/26/17. TECHNIQUE: An abdomen and pelvic CT are performed with IV and oral contrast. Coronal reformatted images are sub mitted for interpretation. FINDINGS: ABDOMEN CT: Chronic changes in the lung bases. Heart size is normal. No pericardial effusion. The descending t horacic aorta and the abdominal aorta have an overall normal caliber and stable atherosclerotic disea se. There is mild narrowing of the distal abdominal aorta due to calcified and noncalcified. There is occlusion of the right common iliac artery, right internal iliac artery, as well as partial occlus ion of the left external iliac artery. The atherosclerotic disease is similar to the previous exam. Symmetric attenuation of the psoas muscles. Stable hypodensities in the liver. Gallbladder is surgically absent. Liver, spleen, pancreas, and a drenal glands have appropriate enhancement. Symmetric enhancement of the kidneys. Bilateral extrarenal pelvises are noted. Bilaterally, no obst ructive uropathy. No gastrohepatic, retrocrural, or periportal lymphadenopathy. No mesenteric mass, lymphadenopathy, free air, or free fluid. There are stable postsurgical changes involving the ventral abdominal soft tissues. Stable ostomy in the right lower quadrant with parasto mal hernia, mesenteric fat, and bowel. No bowel obstruction. Gastric mucosa, duodenum, and multiple normal-caliber small bowel loops are noted. No evidence of bowel obstruction. Decompressed left hemicolon is noted. PELVIC CT: Urinary bladder is mildly prominent. There is stranding of the fat in the anterior pelvic soft tissu es. There is redemonstration of hyodensity and calcifications in the right hemipelvis. This finding is unchanged from the examination performed yesterday. No pelvic lymphadenopathy, free air, or free fluid. Bilateral hydroceles are noted, left greater than right. No lytic or blastic lesions within the osseous structures. There appears to be increased vasculature of the right leg which may represent collateral flow. A sm all focus of air is noted. It appears that the contrast was injected via the right lower extremity. IMPRESSION: 1. Stable right pelvic mass. 2. Stable atherosclerotic disease. 3. Stable postsurgical changes as described above. When compared to the examination performed yeste rday, no significant change. POS: OFF
[2017-07-27] MEDS: Carvedilol 6.25 MG TAB PO SCH ×2 (09:40→16:48)
[2017-07-27] MEDS: Diazepam 5 MG TAB PO SCH (09:40)
[2017-07-27] MEDS: DULoxetine 60 MG CAP PO SCH (09:40)
--- NOTE | 2017-07-27 14:49 | PDOC.PN ---
- Subjective Encounter Start Date: 07/27/17 Encounter Start Time: 11:00 Patient is seen len, feeling very lethargic and drowsy, feels he is very dehydrated, he is noted to have low Sodium likely from Hypotonic Fluids. Waiitng on GI evaalution of his posisble GI bleed. - Objective Resuscitation Status: Resuscitation Status FULL:Full Resuscitation MAR Reviewed: Yes Vital Signs & Weight: Vital Signs (12 hours) Temp Pulse Resp BP BP Pulse Ox 07/27/17 11:40 98.3 F 87 16 131/71 98 07/27/17 11:19 130/71 07/27/17 07:49 97.7 F 93 17 07/27/17 07:34 98.7 F 84 16 129/74 98 07/27/17 03:40 97.7 F 93 17 130/74 96 Weight Weight 138 lb I&O: 07/26/17 07/27/17 07/28/17 06:59 06:59 06:59 Intake Total 988 10 Output Total 500 Balance 488 10 Result Diagrams: 07/27/17 05:58 07/27/17 05:58 Additional Labs: Accuchecks 07/26/17 20:55 POC Glucose 99 Radiology Reviewed by me: Yes Phys Exam - Physical Examination HEENT: PERRLA, moist MMs Neck: no nodes, no JVD Respiratory: no wheezing, no rales Cardiovascular: RRR, no significant murmur Gastrointestinal: soft, non-tender Musculoskeletal: no edema, pulses present Neurological: non-focal, normal sensation Dx/Plan (1) Acute upper GI bleed Code(s): K92.2 - GASTROINTESTINAL HEMORRHAGE, UNSPECIFIED Status: Acute Comment: H/o severe petic ulcer bleed, Discussed with Dr. Abreu, Planned for EGD later today, (2) Abdominal pain Code(s): R10.9 - UNSPECIFIED ABDOMINAL PAIN Status: Acute Qualifiers: Abdominal location: left upper quadrant Qualified Code(s): R10.12 - Left upper quadrant pain Comment: Improved with protionic drip, monitor [place] for any peptic ulcer bleed, Waiting on CT results. (3) Hyponatremia Code(s): E87.1 - HYPO-OSMOLALITY AND HYPONATREMIA Status: Acute Comment: Likely from Hypotonic Fluids, Will d/c D5 and start on NS. (4) CAD (coronary artery disease) Code(s): I25.10 - ATHSCL HEART DISEASE OF [place] CORONARY ARTERY W/O ANG PCTRS Status: Chronic Qualifiers: Coronary Disease-Associated Artery/Lesion type: [place] artery [place] vs. transplanted heart: [place] heart Comment: Continue with BB, Aspirin. (5) GERD (gastroesophageal reflux disease) Code(s): K21.9 - GASTRO-ESOPHAGEAL REFLUX DISEASE WITHOUT ESOPHAGITIS Status: Chronic Comment: COntinue on PPI (6) Hypertension Code(s): I10 - ESSENTIAL (PRIMARY) HYPERTENSION Status: Chronic Qualifiers: Hypertension type: essential hypertension Qualified Code(s): I10 - Essential (primary) hypertension Comment: Stbs[place]. Continue Home MEds after EGD. - Plan cont current plan of care, PT/OT, social media marketer, DVT proph w/SCDs * . - Discharge Day Encounter end time: 11:30 Review of Systems - Review of Systems Constitutional: weakness, malaise. negative: fever, chills, sweats, other Eyes: negative: Pain, Vision Change, Conjunctivae Inflammation, Eyelid Inflammation, Redness, Other ENT: negative: Ear Pain, Ear Discharge, Nose Pain, Nose Discharge, Nose Congestion, Mouth Pain, Mouth Swelling, Throat Pain, Throat Swelling, Other Respiratory: negative: Cough, Dry, Shortness of Breath, Hemoptysis, SOB with Excertion, Pleuritic Pain, Sputum, Wheezing Cardiovascular: negative: chest pain, palpitations, orthopnea, paroxysmal nocturnal dyspnea, edema, light headedness, other Gastrointestinal: negative: Nausea, Vomiting, Abdominal Pain, Diarrhea, Constipation, Melena, Hematochezia, Other Genitourinary: negative: Dysuria, Frequency, Incontinence, Hematuria, Retention , Other Musculoskeletal: negative: Neck Pain, Shoulder Pain, Arm Pain, Back Pain, Hand Pain, Leg Pain, Foot Pain, Other Skin: negative: Rash, Lesions, Ibrahima, Bruising, Other - Medications/Allergies Allergies/Adverse Reactions: Allergies Allergy/AdvReac Type Severity Reaction Status Date / Time No Known Allergies Allergy Verified 05/25/17 12:12 Medications: Current Medications Carvedilol (Coreg) 6.25 mg PO BID-[facility] Last Admin: 07/27/17 09:40 Dose: 6.25 mg Cyclobenzaprine HCl (Flexeril) 10 mg PO TID PRN PRN Reason: Muscle Spasm Last Admin: 07/27/17 03:24 Dose: 10 mg Diazepam (Valium) 5 mg PO DAILY COUNTS INCLUDE 234 BEDS AT THE [facility] Last Admin: 07/27/17 09:40 Dose: 5 mg Duloxetine HCl (Cymbalta) 60 mg PO DAILY COUNTS INCLUDE 234 BEDS AT THE [facility] Last Admin: 07/27/17 09:40 Dose: 60 mg Methocarbamol 1 gm/ Sodium (Chloride) 110 mls @ 200 mls/hr IVPB Q8H PRN PRN Reason: Muscle Spasm Pantoprazole Sodium 80 mg/ (Sodium Chloride) 100 mls @ 10 mls/hr IVPB INF COUNTS INCLUDE 234 BEDS AT THE [facility] Last Admin: 07/27/17 07:07 Dose: 100 mls Sodium Chloride (Normal Saline 0.9%) 1,000 mls @ 75 mls/hr IV .[id number] COUNTS INCLUDE 234 BEDS AT THE [facility] Morphine Sulfate (Morphine) 4 mg SLOW IVP Q4H PRN PRN Reason: Breakthrough Pain Last Admin: 07/27/17 08:03 Dose: 4 mg Sodium Chloride (Flush - Normal Saline) 10 ml IVF PRN PRN PRN Reason: Saline Flush
[2017-07-27] MEDS ORDERED: Fentanyl 100 MCG/2 ML VIAL ONE (15:18)
[2017-07-27] MEDS ORDERED: Lidocaine 1% PF 5 ML VIAL ONE (16:24)
[2017-07-27] MEDS ORDERED: PROPOFOL 200 MG/20 ML VIAL ONE (16:24)
[2017-07-27] MEDS: Sodium Chloride 0.9% 1,000 ML IV SCH (16:48)
--- NOTE | 2017-07-27 20:15 | OP ---
DATE OF SURGERY: 07/27/2017 OPERATIVE PROCEDURE: Esophagogastroduodenoscopy. PREOPERATIVE DIAGNOSIS: A 61-year-old male with past history of bleeding peptic ulcer in 2 017. The patient had repeat EGD done few months later on, the ulcer had healed. The patient present s with black tarry stool in the ileostomy bag. The patient is undergoing esophagogastroduodenoscopy. POSTOPERATIVE DIAGNOSES: 1. Normal esophageal mucosa. 2. Mild gastritis. The mucosa appeared hyperemic and edematous, but no ulcerations seen. The duode num showed ulcerations. The descending duodenum, no pathology seen. The mucosa appears slightly hyp eremic. PROCEDURE IN DETAIL: The patient was placed on his left lateral position and was given sedation by A nesthesia Department. A [employer] video gastroscope under direct vision was passed down the oropharynx, past the gastroesophageal junction, into the stomach and subsequently into the descending duodenum. The esophageal mucosa appeared normal. The GE junction, no pathology seen. Retroflexion failed to show any lesions in the fundus and cardia. The gastric body and gastric antrum showed mild mucosal h yperemia. No ulcerations or any erosions seen. The incisura angularis, no pathology seen. The scop e was advanced into the duodenal bulb, descending duodenum. The mucosa was slightly hyperemic, other vigil the duodenum, no pathology seen. The stomach was decompressed and the scope removed. RECOMMENDATIONS: 1. Discontinue n.p.o. 2. Regular diet. 3. Follow up H and H and if he is stable, consider discharge hopefully tomorrow.
[2017-07-28 05:51] LABS: Anion Gap 9 mmol/L (10-20); BUN (Urea Nitrogen) 14 mg/dL (8.4-25.7); Calc. Creatinine Clearance 83 mL/min (70-130); Calcium 8.4 mg/dL (7.8-10.44); Carbon Dioxide 25 mmol/L (23-31); Chloride 103 mmol/L (98-107); Estimated GFR-MDRD Greater than 90; Glucose 111 mg/dL (80-115); Potassium 3.9 mmol/L (3.5-5.1); Sodium 133 mmol/L (136-145)
[2017-07-28] MEDS: Morphine 5 MG/ML SYRINGE SLOW IVP PRN (06:01)
[2017-07-28] MEDS: Sodium Chloride 0.9% 1,000 ML IV SCH (06:01)
[2017-07-28 08:06] VITALS: BP 132/68; TEMP 98.2
[2017-07-28] MEDS: Diazepam 5 MG TAB PO SCH (08:26)
[2017-07-28] MEDS: Carvedilol 6.25 MG TAB PO SCH (08:26)
[2017-07-28] MEDS: DULoxetine 60 MG CAP PO SCH (08:26)
--- NOTE | 2017-07-29 12:38 | DIS ---
DATE OF ADMISSION: 07/26/2017 DATE OF DISCHARGE: 07/28/2017 ADMITTING DIAGNOSIS: Acute upper gastrointestinal bleed. DISCHARGE DIAGNOSIS: Acute abdominal pain with no evidence of any gastrointestinal bleed. SECONDARY DIAGNOSES: Peptic ulcer disease, history of colon cancer, history of hypertension, history of neural fibrosarcoma, history of chronic obstructive pulmonary disease. CONSULTANTS INVOLVED IN THE CARE: Dr. Kate from GI. PROCEDURES DONE DURING THIS ADMISSION: Upper GI endoscopy which was unremarkable. HISTORY OF PRESENT ILLNESS AND HOSPITAL COURSE: In brief, this is a 61-year-old white male with a kn own history of multiple abdominal surgeries with history of peptic ulcer bleeding last year and had b owel obstruction with exploratory laparotomy with a particular rupture. Patient was seen today [facility] of the persistent abdominal pain and he mentioned that he was passing black stools in the colostom y bag. So patient had a thorough evaluation and his hemoglobin had remained stable and GI was consul vicki who initially thought there was no evidence of any upper GI bleed preoperatively as there was no evidence of elevated BUN nor any change in hemoglobin. EGD did not show any evidence of acute GI ble ed. So, patient was advised to continue on the PPIs and closely follow up as outpatient. Patient i s discharged home in stable condition. PHYSICAL EXAMINATION: VITAL SIGNS: Blood pressure on day of discharge on 132/68, heart rate is 88, respiratory rate 18, sa turation 98%. GENERAL: The patient is moderately built and moderately nourished. CARDIOVASCULAR: S1 and S2 normal. No murmurs, rubs or gallops. LUNGS: Bilateral air entry was equal. No wheezing, no crackles. ABDOMEN: Soft, nontender, no guarding, no rebound tenderness. Normal bowel sounds. The colostomy b ag was noted. DISCHARGE MEDICATIONS: Patient is discharged on home medications. 1. Hydrocodone. 2. Dutasteride. 3. Famotidine. 4. Lisinopril 10 mg p.o. daily. 5. Pantoprazole 40 mg p.o. daily. 6. Tamsulosin 0.8 mg daily. 7. Coreg 6.25 mg b.i.d. 8. Diazepam 5 mg p.o. daily. 9. Duloxetine 60 mg p.o. daily. DISCHARGE INSTRUCTIONS: 1. Continue activity as tolerated. Advised to follow up with Dr. Kate in 1-2 weeks or if he no esther any further bleeding in the bag, advised to return to the ER or call Dr. Kate's clinic to g et the stool tested for occult blood. 2. Advised to continue on PPIs. Advised to continue on oral hydration. I spent 35 minutes of this patient on the day of discharge.
[2017-07-29 22:12] LABS: H. pylori IgA ABS Less than 9.0 units (0.0-8.9); H. pylori IgG ABS 0.22 (0.00-0.79); H. pylori IgM ABS Less than 9.0 units (0.0-8.9)
== END 2017-07-28 11:50 | disposition home or self-care (01) ==
LOC: ERS 16:40 → 2SW 17:10
PROVIDERS: ADMIT Family Medicine; ATTEND Family Medicine
PROC: 0DJ08ZZ Inspection of Upper Intestinal Tract, Via Natural or Artificial Opening Endoscopic (ICD-10-PCS; principal; 2017-07-27)
DX: K29.70 Gastritis, unspecified, without bleeding (principal); K26.9 Duodenal ulcer, unspecified as acute or chronic, without hemorrhage or perforation; J44.9 Chronic obstructive pulmonary disease, unspecified; C47.9 Malignant neoplasm of peripheral nerves and autonomic nervous system, unspecified; I11.9 Hypertensive heart disease without heart failure; M54.5 Low back pain; G89.29 Other chronic pain; E78.5 Hyperlipidemia, unspecified; Z79.2 Long term (current) use of antibiotics; Z79.899 Other long term (current) drug therapy; Z93.2 Ileostomy status; Z90.49 Acquired absence of other specified parts of digestive tract; Z98.890 Other specified postprocedural states; Z92.3 Personal history of irradiation; Z85.038 Personal history of other malignant neoplasm of large intestine
CPT/HCPCS: 43235; 74177; 80048 ×2; 80053; 82962; 85018 ×2; 85025 ×2; 86677 ×3; 96361; 96365; 96366 ×2; 96375; 96376 ×2; 97139 ×4; 99285; G0378; G8978; G8979; G8980; G8987; G8988; G8989; 36415; 36416; J2270; C9113; J2001; J2704; J3010; J7050

== ENCOUNTER 2018-03-25 14:12 | Observation (INO) | payer MEDICARE ==
[2018-03-25] MEDS ORDERED: Promethazine HCl 25 MG/ML VIAL ONE (15:46)
[2018-03-25] MEDS ORDERED: Morphine 4 MG/ML VIAL ONE (15:46)
[2018-03-25] MEDS ORDERED: Ondansetron ODT 4 MG TAB SL PRN (18:14)
[2018-03-25] MEDS ORDERED: Ondansetron HCl/PF 4 MG/2 ML Vial IVP PRN ×2 (18:14→19:18)
[2018-03-25] MEDS ORDERED: HYDROcodone/Acetaminophen 5/325 mg Tablet PO PRN ×2 (18:14)
[2018-03-25] MEDS ORDERED: Acetaminophen 325 MG TAB PO PRN ×2 (18:14→19:18)
[2018-03-25] MEDS ORDERED: Sodium Chloride 0.9% 1,000 ML IV SCH (18:15)
[2018-03-25] MEDS ORDERED: HYDROcodone/Acetaminophen 10/325 mg Tablet PO PRN (19:18)
[2018-03-25] MEDS ORDERED: Enoxaparin Sodium 40 MG/0.4 ML SYRINGE SC SCH (19:18)
[2018-03-25] MEDS ORDERED: Ondansetron ODT 4 MG TAB PO PRN (19:18)
[2018-03-25 19:33] VITALS: BMI 20.9
[2018-03-25] MEDS: Sodium Chloride 0.9% 1,000 ML IV SCH (19:51)
[2018-03-25] MEDS: Ketorolac Tromethamine 30 MG/ML VIAL IVP PRN (19:56)
[2018-03-25] MEDS: HYDROcodone/Acetaminophen 10/325 mg Tablet PO PRN (20:52)
[2018-03-25] MEDS: Lisinopril 5 MG TAB PO SCH (20:53)
[2018-03-26] MEDS: HYDROcodone/Acetaminophen 10/325 mg Tablet PO PRN ×5 (01:35→22:02)
[2018-03-26] MEDS: Ketorolac Tromethamine 30 MG/ML VIAL IVP PRN ×2 (02:38→12:32)
[2018-03-26 04:25] LABS: #Eosinphils 0.1 thou/uL (0.0-0.7); #Lymphocytes 1.3 thou/uL (1.20-3.40); #Monocytes 0.5 thou/uL (0.11-0.59); #Neutrophils 3.7 thou/uL (1.40-6.50); %Basophils 0.8 % (0.0-1.0); %Eosinophils 1.7 % (0.0-10.0); %Lymphocytes 23.1 % (21.0-51.0); %Monocytes 8.3 % (0.0-10.0); %Neutrophils 66.1 % (42.0-75.0); Hemoglobin 12.4 g/dL (14.0-18.0); Mean Corpuscular HGB CONC 33.1 g/dL (32.0-36.0); Mean Corpuscular Hemoglobin 31.6 pg (27.0-31.0); Mean Corpuscular Volume 95.4 fL (78.0-98.0); Mean Platelet Volume 5.9 fL (7.4-10.4); Platelet Count 260 thou/uL (130-400); RBC Distribution Width 10.9 % (11.5-14.5); Red Blood Cell (RBC) Count 3.93 mill/uL (4.70-6.10); White Blood Cell (WBC) Count 5.6 thou/uL (4.8-10.8)
[2018-03-26 04:39] LABS: ALT (SGPT) 18 U/L (8-55); AST (SGOT) 14 U/L (5-34); Albumin 3.4 g/dL (3.4-4.8); Alkaline Phosphatase 58 U/L (40-150); Anion Gap 9 mmol/L (10-20); BUN (Urea Nitrogen) 14 mg/dL (8.4-25.7); Bilirubin, Total 0.4 mg/dL (0.2-1.2); Calc. Creatinine Clearance 74 mL/min (70-130); Calcium 8.4 mg/dL (7.8-10.44); Carbon Dioxide 27 mmol/L (23-31); Chloride 97 mmol/L (98-107); Estimated GFR-MDRD 87; Glucose 104 mg/dL (80-115); Lipase 23 U/L (8-78); Magnesium 1.5 mg/dL (1.6-2.6); Potassium 3.8 mmol/L (3.5-5.1); Protein, Total 5.4 g/dL (5.8-8.1); Sodium 129 mmol/L (136-145)
[2018-03-26] MEDS: Sodium Chloride 0.9% 1,000 ML IV SCH ×2 (05:47→21:06)
[2018-03-26] MEDS: Tamsulosin HCl 0.4 MG CAP PO SCH (08:59)
[2018-03-26] MEDS: Lisinopril 5 MG TAB PO SCH ×2 (08:59→20:12)
[2018-03-26] MEDS: Carvedilol 6.25 MG TAB PO SCH ×2 (08:59→18:06)
[2018-03-26] MEDS ORDERED: MD-Gastroview 120 ML BOT ONE (10:11)
[2018-03-26] MEDS ORDERED: Magnesium 2 GM/NS 0.9% 100 ML 2 GM in Premix Bag 1 BAG IVPB SCH (10:45)
[2018-03-26] MEDS ORDERED: Magnesium 2 GM/50 ML 2 GM in Premix Bag 1 BAG IVPB SCH (11:00)
--- NOTE | 2018-03-26 14:59 | RAD ---
GASTROGRAFIN SMALL BOWEL: COMPARISON: 12/03/2017. HISTORY: Evaluate for bowel obstruction. FINDINGS: Initial template layout worker radiograph demonstrates a right lower quadrant ostomy. The bowel gas pattern is nonspe cific. Vascular calcifications and surgical clips are noted. There is mild degenerative change of t he visualized hips, SI joints, and spine. The patient was administered Gastrografin which opacifies the stomach and normal-caliber small bowel loops on the 15-minute image. On the 25-minute image, there is Gastrografin filling the colostomy ba g. No evidence of high-grade obstruction. IMPRESSION: No evidence of high-grade obstruction. POS: [facility]
--- NOTE | 2018-03-26 15:26 | PDOC.PN ---
- Subjective Encounter Start Date: 03/26/18 Encounter Start Time: 09:30 follow up for abdominal pain, enteritis still with pain, comes and goes, carrie po. some output from ileostomy bag. no F/ C, no cough or CP, no SOB Family at bedside. pain meds not working well. All systems reviewed and neg x as above - Objective Resuscitation Status: Resuscitation Status FULL:Full Resuscitation MAR Reviewed: Yes Vital Signs & Weight: Vital Signs (12 hours) Temp Pulse Resp BP Pulse Ox 03/26/18 11:53 98.2 F 75 18 119/58 L 96 03/26/18 08:59 65 03/26/18 08:00 97.8 F 65 16 131/66 99 03/26/18 04:44 97.7 F 63 12 120/65 97 Weight Weight 134 lb 1 oz I&O: 03/25/18 03/26/18 03/27/18 06:59 06:59 06:59 Intake Total 1122 215 Output Total 540 Balance 582 215 Result Diagrams: 03/26/18 03:58 03/26/18 03:58 Radiology Reviewed by me: Yes Phys Exam - Physical Examination Constitutional: NAD HEENT: PERRLA, moist MMs, sclera anicteric, oral pharynx no lesions Neck: no nodes, no JVD, supple, full ROM Respiratory: no wheezing, no rales, no rhonchi, clear to auscultation bilateral Cardiovascular: RRR, no significant murmur, no rub Gastrointestinal: soft hyperactive bowel sounds, diffuse tenderness to palpation Musculoskeletal: no edema, pulses present Neurological: non-focal, normal sensation, moves all 4 limbs Lymphatic: no nodes Psychiatric: normal affect, A&O x 3 Skin: no rash, normal turgor, cap refill <2 seconds Dx/Plan (1) Enteritis Code(s): K52.9 - NONINFECTIVE GASTROENTERITIS AND COLITIS, UNSPECIFIED Status : Chronic Comment: start cipro and flagyl. no obstruction by UGI/SBFT (2) Ileostomy in place Code(s): Z93.2 - ILEOSTOMY STATUS Status: Chronic (3) Abdominal pain Code(s): R10.9 - UNSPECIFIED ABDOMINAL PAIN Status: Acute Qualifiers: Abdominal location: left lower quadrant Qualified Code(s): R10.32 - Left lower quadrant pain Comment: stable, add in IV meds for breakthrough (4) Hyponatremia Code(s): E87.1 - HYPO-OSMOLALITY AND HYPONATREMIA Status: Acute Comment: Likely from Hypotonic Fluids, Will d/c D5 and start on NS. (5) Physical deconditioning Code(s): R53.81 - OTHER MALAISE Status: Chronic (6) Hypertension Code(s): I10 - ESSENTIAL (PRIMARY) HYPERTENSION Status: Chronic Qualifiers: Hypertension type: essential hypertension Qualified Code(s): I10 - Essential (primary) hypertension Comment: Stbsle. Continue Home MEds after EGD. (7) h/o Neurofibrosarcoma Status: Chronic - Plan cont current plan of care, plan discussed w/ family, continue antibiotics, out of bed/ambulate * .
[2018-03-26] MEDS: metroNIDAZOLE 500 MG in Premix Bag 1 BAG IVPB SCH ×2 (16:16→22:04)
--- NOTE | 2018-03-26 19:11 | HP ---
DATE OF ADMISSION: 03/26/2018 PRIMARY CARE PHYSICIAN: Kalina Huddleston DO TIME OF SERVICE: 1800. CHIEF COMPLAINT: Abdominal pain. HISTORY OF PRESENT ILLNESS: Mr. Cardoso is a 62-year-old gentleman with a history of neurofibroma tu mor of the abdomen and diverticulosis, status post colectomy and ileostomy in 1978, who in 2017 under went revision, had the remainder of his colon removed and a revision of his ileostomy by Dr. Sandra. The patient was doing well, but has had abdominal pain in the left lower quadrant since morning of day of admission. He has been unable to urinate and has had a headache with increased blood pressu re over the last 2 weeks. Pain was currently better on arrival to our facility as he presented to an outside facility initially, but described as a constant dull pain, primarily in the left lower quadr ant associated with some nausea. He had recently been on Cipro and Flagyl for possible UTI and finis hed that about a week ago. Denies any fevers or chills. No bloody output in his ostomy. He has not iced decreased output kind of green frothiness. No other current complaints. Denies any cough or sp utum production. No chest pain. PAST MEDICAL HISTORY: 1. Diverticulosis, status post almost total colectomy. 2. Hypertension. 3. BPH. 4. GERD. 5. Presence of ileostomy. 6. Neurofibromas. PAST SURGICAL HISTORY: Includes an ileostomy in 1978, cholecystectomy, appendectomy, ileostomy estela ion and total colectomy in 2017. HOME MEDICATIONS: 1. Protonix 40 mg p.o. b.i.d. 2. Flomax 0.4 mg daily. 3. Lisinopril 10 mg p.o. b.i.d. 4. Coreg 6.25 mg p.o. b.i.d. 5. [place] 10/325 q.4 hours p.r.n. ALLERGIES: NKDA. FAMILY HISTORY: Negative for clotting or bleeding disorder. No immune dysfunction. SOCIAL HISTORY: Significant for 2 packs per day of cigarettes. No alcohol, no IV drugs. REVIEW OF SYSTEMS: All systems reviewed and negative except as stated in the history of present illn ess. PHYSICAL EXAMINATION: VITAL SIGNS: Temperature 98.2, pulse 78, blood pressure 132/85, respiratory rate 14, satting 99% on room air. GENERAL: He is awake, he is alert, he is oriented x3. He is a thin white male, who appears to be in no acute distress, looks . HEENT: Normocephalic, atraumatic. Pupils equal and react to light bilaterally. Mucous membranes mo ist. No visible lesions. No thrush. NECK: Supple. There is no lymphadenopathy, JVD, or thyromegaly. Normal carotid upstroke without br uits. LUNGS: Clear. No wheezes, no rales or rhonchi with good air movement. Symmetrical chest excursion. CARDIOVASCULAR: Normal S1 and S2. He has a regular rhythm and a normal rate. Normal S1 and S2. No audible murmurs. ABDOMEN: Soft. It is tender in the left lower quadrant primarily but is diffusely tender. He has n o rebound, rigidity or guarding. Hyperactive bowel sounds present in all 4 quadrants at a normal pit ch. Ileostomy in the right upper quadrant appears to be intact. EXTREMITIES: No cyanosis, no clubbing, no edema. SKIN: Warm, moist, well-perfused. No rashes, no lesions. MUSCULOSKELETAL: Normal to inspection. Joints appear normal. There is no evidence of inflammation or palpable effusions. NEUROLOGIC: Cranial nerves II-XII are grossly intact. He has no focal deficits. Normal speech and 5/5 strength in all 4 extremities. LABORATORY DATA: Sodium 128, potassium 4.1, chloride 91, bicarbonate 22, BUN 10, creatinine 0.86, gl ucose of 89, calcium 10.0. Liver function within normal limits. CBC showed a white count of 6.2, hemoglobin is 18.7, hematocrit of 47.1, platelet count is 209,000 with normal differential. Lactic acid 1.4. Urinalysis was clear . A CT scan of the abdomen and pelvis showed prominent inflammation of the lower abdomen and pelvic bow el with stranding in the fat and free fluid. There is some reaction with the bowel approximately the bladder. ASSESSMENT AND PLAN: 1. Enteritis. The patient has a possible infectious enteritis. White count is normal at this point . We will hold off on antibiotics tonight and will let him eat. If he is still having significant p ain in the morning despite anti-inflammatories, then may need to institute antibiotics and get better imaging. 2. Benign prostatic hypertrophy. We will continue his Flomax. 3. Hypertension, on lisinopril and Coreg, which we will continue. 4. Gastroesophageal reflux disease, on Protonix, which we will continue. 5. We will continue his home [place] plus adding Toradol. We will hold off on any IV narcotics at pre sent.
[2018-03-27] MEDS: Ketorolac Tromethamine 30 MG/ML VIAL IVP PRN (00:29)
[2018-03-27] MEDS: metroNIDAZOLE 500 MG in Premix Bag 1 BAG IVPB SCH ×3 (03:15→16:10)
[2018-03-27] MEDS: HYDROcodone/Acetaminophen 10/325 mg Tablet PO PRN ×4 (03:16→16:08)
[2018-03-27 04:56] LABS: #Eosinphils 0.1 thou/uL (0.0-0.7); #Lymphocytes 1.2 thou/uL (1.20-3.40); #Monocytes 0.4 thou/uL (0.11-0.59); #Neutrophils 3.7 thou/uL (1.40-6.50); %Basophils 0.8 % (0.0-1.0); %Eosinophils 1.9 % (0.0-10.0); %Lymphocytes 21.6 % (21.0-51.0); %Monocytes 7.9 % (0.0-10.0); %Neutrophils 67.8 % (42.0-75.0); Hemoglobin 12.5 g/dL (14.0-18.0); Mean Corpuscular HGB CONC 33.6 g/dL (32.0-36.0); Mean Corpuscular Hemoglobin 32.3 pg (27.0-31.0); Mean Corpuscular Volume 96.1 fL (78.0-98.0); Mean Platelet Volume 5.9 fL (7.4-10.4); Platelet Count 254 thou/uL (130-400); RBC Distribution Width 11.2 % (11.5-14.5); Red Blood Cell (RBC) Count 3.87 mill/uL (4.70-6.10); White Blood Cell (WBC) Count 5.4 thou/uL (4.8-10.8)
[2018-03-27 05:11] LABS: Anion Gap 12 mmol/L (10-20); BUN (Urea Nitrogen) 18 mg/dL (8.4-25.7); Calc. Creatinine Clearance 77 mL/min (70-130); Calcium 8.7 mg/dL (7.8-10.44); Carbon Dioxide 23 mmol/L (23-31); Chloride 104 mmol/L (98-107); Estimated GFR-MDRD 90; Glucose 94 mg/dL (80-115); Magnesium 1.9 mg/dL (1.6-2.6); Sodium 135 mmol/L (136-145)
[2018-03-27 08:48] VITALS: BP 116/59; TEMP 97.7
[2018-03-27] MEDS: Lisinopril 5 MG TAB PO SCH (08:52)
[2018-03-27] MEDS: Tamsulosin HCl 0.4 MG CAP PO SCH (08:52)
[2018-03-27] MEDS: Carvedilol 6.25 MG TAB PO SCH (08:52)
[2018-03-27] MEDS: Sodium Chloride 0.9% 1,000 ML IV SCH (10:36)
--- NOTE | 2018-03-27 23:22 | DIS ---
DATE OF ADMISSION: 03/25/2018 DATE OF DISCHARGE: 03/27/2018 DISCHARGE DIAGNOSES: 1. Gastroenteritis, presumed infectious organism not identified. 2. Abdominal pain secondary to #1. 3. Chronic ileostomy, stable. 4. Hyponatremia, improved. 5. Hypertension, stable. CONSULTATIONS: None. PERTINENT LABORATORY AND X-RAY FINDINGS: Sodium ranged between 129-135. LFTs within normal limits. Lipase 23. CBC showed a white blood cell count ranging between 5.4-5.6, hemoglobin 12.5. Urine cul ture dated 03/25/2018, showed no growth at 36 hours, small bowel follows through dated 03/26/2018, sh owed no evidence of high-grade obstruction. CT of the abdomen and pelvis dated 03/25/2018, showed a prominent inflammatory process with some reactive wall thickening of the urinary bladder. HOSPITAL COURSE: The patient was observed after presenting with increased abdominal pain in the cont ext of neurofibroma history, status post tumor resection and subsequent diverticulosis requiring danny ctomy and chronic ileostomy. The patient underwent CT imaging of the abdomen and pelvis, showing inf lammatory process without obvious obstruction. The patient with recent urinary tract infection treat ed with ciprofloxacin, diagnosed with presumed infectious enteritis. The patient was placed on IV ci profloxacin and Flagyl and underwent repeat small bowel follow through showing no evidence of high-gr pam obstruction. The patient had liquid stool output through his ileostomy; however, no stool studie s were performed. The patient remained afebrile throughout the hospital course with normal white blo od cell count. The patient overall clinically stabilized with supportive management including IV flu ids and antibiotic therapy. The patient tolerated regular oral intake without difficulty. I have di scussed followup instructions with the patient at the time of discharge who verbalized understanding and agreement. The patient overall clinically stable and ready for discharge on 03/27/2018. DISCHARGE MEDICATIONS: 1. Ciprofloxacin 500 mg p.o. b.i.d. x5 days. 2. Flagyl 500 mg 1 tab p.o. t.i.d. x5 days. 3. Diazepam 5 mg p.o. daily. 4. [place] 10/325 mg 1 tab p.o. q.4 hours p.r.n. pain. 5. Lisinopril 10 mg p.o. daily. 6. Protonix 40 mg p.o. daily. 7. Flomax 0.8 mg p.o. daily. 8. Coreg 6.25 mg p.o. b.i.d. 9. Flexeril 10 mg p.o. t.i.d. p.r.n. 10. Cymbalta 60 mg p.o. daily. 11. Avodart 0.5 mg p.o. daily. 12. Pepcid 20 mg p.o. b.i.d. FOLLOWUP: Patient will follow up with Dr. Kalina Huddleston within 7 days of discharge. CONDITION ON DISCHARGE: Stable. ACTIVITY: Ad tere. DIET: Regular. CODE STATUS: FULL. DISPOSITION: Home, 03/27/2018.
== END 2018-03-27 16:25 | disposition home or self-care (01) ==
LOC: ERS 14:12 → ONC 18:14
PROVIDERS: ADMIT Internal Medicine Infectious Disease; ATTEND Internal Medicine Infectious Disease
DX: K52.9 Noninfective gastroenteritis and colitis, unspecified (principal); E87.1 Hypo-osmolality and hyponatremia; I10 Essential (primary) hypertension; N40.0 Benign prostatic hyperplasia without lower urinary tract symptoms; K21.9 Gastro-esophageal reflux disease without esophagitis; F17.210 Nicotine dependence, cigarettes, uncomplicated; C47.9 Malignant neoplasm of peripheral nerves and autonomic nervous system, unspecified; Z79.899 Other long term (current) drug therapy; Z93.2 Ileostomy status; Z90.49 Acquired absence of other specified parts of digestive tract
CPT/HCPCS: 74250; 80048; 80053; 83690; 83735 ×2; 85025 ×2; 94760; 96361 ×3; 96365; 96366 ×2; 96367; 96372; 96375 ×3; 96376 ×2; 99285; G0378 ×2; 36415; J0744; J1650; J1885; J2270; J2405; J2550